=== PATIENT | female | born 1950 | race Caucasian/White ===

== ENCOUNTER 2016-10-24 19:18 | Inpatient (IN) | payer OTHER, MEDICAID ==
[~2016-10-24] VITALS: Ht 160 cm; Wt 89.8 kg
[2016-10-24 19:20] VITALS: BP_SYST 141
[2016-10-24 20:57] LABS: BASOPHILS # (AUTO) 0.2 K/uL (0.0-0.2); BASOPHILS % (AUTO) 1.9 % (0.0-2.0); EOSINOPHILS # (AUTO) 0.1 K/uL (0.0-0.4); EOSINOPHILS % (AUTO) 0.8 % (0.0-4.0); HEMATOCRIT 50.5 % (36-48); HEMOGLOBIN 16.4 g/dL (12.0-16.0); LYMPHOCYTES # (AUTO) 1.3 K/uL (1.0-5.5); LYMPHOCYTES % (AUTO) 10.5 % (20.5-51.5); MEAN CORPUSCULAR HEMOGLOBIN 31 pg (27-31); MEAN CORPUSCULAR HGB CONC 33 % (32-36); MEAN CORPUSCULAR VOLUME 95 fL (79.0-98.0); MONOCYTES # (AUTO) 0.9 K/uL (0.0-1.0); MONOCYTES % (AUTO) 7.3 % (1.7-9.3); NEUTROPHILS # (AUTO) 9.5 K/uL (1.8-7.7); NEUTROPHILS % (AUTO) 79.5 % (40.0-70.0); PLATELET COUNT (AUTO) 257 K/uL (130-430); RED BLOOD CELL COUNT(AUTO) 5.33 MIL/uL (4.2-6.2); RED CELL DISTRIBUTION WIDTH 12.2 % (9.0-15.0)
[2016-10-24 21:00] LABS: ANION GAP 6 (5-15); CALCIUM 11.1 mg/dL (8.4-11.0); CHLORIDE 104 mmol/L (98-107); CREATININE 1.21 mg/dL (0.55-1.30); GLUCOSE 127 mg/dL (70-99); POTASSIUM 3.3 mmol/L (3.5-5.1); SODIUM SERUM 140 mmol/L (136-145); UREA NITROGEN, BLOOD 26 mg/dL (8-21)
[2016-10-24 21:05] LABS: GFR AFRICAN AMERICAN 57 mL/min (>90)
[2016-10-24 21:08] LABS: ALANINE AMINOTRANSFERASE 29 U/L (12-78); ALBUMIN 3.7 g/dL (3.4-4.8); ASPARTATE AMINOTRANSFERASE 19 U/L (10-37); TOTAL BILIRUBIN 0.8 mg/dL (0.0-1.0); TOTAL PROTEIN, SERUM 6.6 g/dL (6.4-8.3)
[2016-10-24] MEDS ORDERED: DIPH-TET-PERTUS Vaccine 0.5 ML VIAL (ADACEL) I.M. ONE (22:15)
[2016-10-24] MEDS ORDERED: NACL 0.9% 1,000 ML IV ONE (22:15)
[2016-10-24] MEDS ORDERED: IPRA4AER INH (22:29)
[2016-10-24] MEDS ORDERED: ESCI20TA PO (22:29)
[2016-10-24] MEDS ORDERED: BUTA1CAP43 PO (22:29)
[2016-10-24] MEDS ORDERED: QUET25TA34 PO (22:29)
[2016-10-24] MEDS ORDERED: HAL5 PO (22:29)
[2016-10-24] MEDS ORDERED: PRO40 PO (22:29)
[2016-10-24] MEDS ORDERED: LORA1TAB PO (22:29)
[2016-10-24] MEDS ORDERED: HYDR-4100 PO (22:29)
[2016-10-24] MEDS ORDERED: QUET50TA22 PO (22:29)
[2016-10-24] MEDS ORDERED: HYDROcodone/ACETAMIN 10-325 MG TAB PO PRN (23:00)
[2016-10-24] MEDS ORDERED: LORazepam 1 MG TABLET PO PRN (23:00)
[2016-10-24] MEDS ORDERED: HALOPERIDOL 5 MG TABLET (HALDOL) PO PRN (23:00)
[2016-10-24] MEDS ORDERED: PANTOPRAZOLE SODIUM 40 MG/VIAL (PROTONIX) ONE (23:17)
[2016-10-24 23:22] VITALS: BP_SYST 119
[2016-10-24] MEDS ORDERED: IPRATROPIUM/ALBUTEROL SULFATE 3 ML AMPUL.NEB INH PRN (23:30)
[2016-10-25] VITALS (7 sets, daily range): BP systolic 119–132
[2016-10-25 03:41] LABS: BILIRUBIN,URINE NEGATIVE (NEGATIVE); BLOOD, URINE NEGATIVE (NEGATIVE); CLARITY/URINE CLOUDY (CLEAR); COLOR,URINE YELLOW (YELLOW); GLUCOSE,URINE NEGATIVE (NEGATIVE); KETONES,URINE TRACE (NEGATIVE); LEUKOCYTE ESTERASE ,URINE 2+ (NEGATIVE); NITRITE, URINE POSITIVE (NEGATIVE); PROTEIN URINE NEGATIVE (NEGATIVE)
[2016-10-25 03:52] LABS: BACTERIA,URINE MANY /HPF (None Seen); RBC,URINE 0-3 /HPF (0-3); WBC,URINE 20-50 /HPF (0-3)
[2016-10-25 07:01] LABS: CALCIUM 10.2 mg/dL (8.4-11.0); CREATININE 0.91 mg/dL (0.55-1.30); POTASSIUM 3.2 mmol/L (3.5-5.1)
[2016-10-25 07:57] LABS: BASOPHILS % (AUTO) 0.4 % (0.0-2.0); EOSINOPHILS # (AUTO) 0.1 K/uL (0.0-0.4); EOSINOPHILS % (AUTO) 1.2 % (0.0-4.0); HEMATOCRIT 46.2 % (36-48); HEMOGLOBIN 15.1 g/dL (12.0-16.0); LYMPHOCYTES # (AUTO) 1.3 K/uL (1.0-5.5); LYMPHOCYTES % (AUTO) 16.9 % (20.5-51.5); MEAN CORPUSCULAR HEMOGLOBIN 31 pg (27-31); MEAN CORPUSCULAR HGB CONC 33 % (32-36); MEAN CORPUSCULAR VOLUME 94 fL (79.0-98.0); MONOCYTES # (AUTO) 0.7 K/uL (0.0-1.0); MONOCYTES % (AUTO) 8.5 % (1.7-9.3); NEUTROPHILS # (AUTO) 5.7 K/uL (1.8-7.7); PLATELET COUNT (AUTO) 222 K/uL (130-430); RED BLOOD CELL COUNT(AUTO) 4.89 MIL/uL (4.2-6.2); RED CELL DISTRIBUTION WIDTH 12.1 % (9.0-15.0); WHITE BLOOD COUNT (AUTO) 7.8 K/uL (4.8-10.8)
[2016-10-25] MEDS: QUEtiapine FUMARATE 25 MG TABLET PO SCH ×2 (08:07→21:00)
[2016-10-25] MEDS ORDERED: MAGNESIUM SULFATE 50 ML IV PRN (08:30)
[2016-10-25] MEDS ORDERED: ACETAMINOPHEN 325 MG TABLET PO PRN (08:30)
[2016-10-25] MEDS ORDERED: POTASSIUM CHLORIDE 10 MEQ TAB.PRT.SR PO PRN (08:30)
[2016-10-25] MEDS ORDERED: DOCUSATE SODIUM 100 MG CAPSULE PO PRN (08:30)
[2016-10-25] MEDS ORDERED: ONDANSETRON HCL 4 MG/2 ML VIAL IVP PRN (08:30)
[2016-10-25] MEDS ORDERED: ZOLPIDEM TARTRATE 5 MG TABLET PO PRN (08:30)
[2016-10-25] MEDS ORDERED: MORPHINE 2 MG/ML INJ. SYRINGE IVP PRN (08:30)
[2016-10-25] MEDS ORDERED: LORazepam 2 MG/ML VIAL IVP PRN (08:30)
[2016-10-25] MEDS ORDERED: ESCITALOPRAM OXALATE 10 MG TABLET PO SCH (09:00)
[2016-10-25] MEDS ORDERED: PANTOPRAZOLE SODIUM 40 MG TAB PO SCH (09:00)
[2016-10-25] MEDS: cefTRIAXone 1 GM in D5W 50 ML IV SCH (10:22)
[2016-10-25] MEDS: CITALOPRAM HYDROBROMIDE 20 MG TABLET PO SCH (10:22)
[2016-10-25] MEDS: HEPARIN SODIUM,PORCINE 5000 UNITS/ML VIAL SUBCUT SCH ×2 (10:25→21:02)
[2016-10-25] MEDS: NACL 0.9% 1,000 ML IV SCH ×2 (13:03→14:35)
[2016-10-26] VITALS: BP_SYST 133
[2016-10-26] MEDS: NACL 0.9% 1,000 ML IV SCH ×2 (04:41→17:39)
[2016-10-26 05:05] VITALS: BP_SYST 126
[2016-10-26 07:42] LABS: BASOPHILS % (AUTO) 0.4 % (0.0-2.0); CREATININE 0.79 mg/dL (0.55-1.30); EOSINOPHILS # (AUTO) 0.1 K/uL (0.0-0.4); EOSINOPHILS % (AUTO) 1.5 % (0.0-4.0); HEMATOCRIT 43.5 % (36-48); HEMOGLOBIN 14.3 g/dL (12.0-16.0); LYMPHOCYTES % (AUTO) 18.4 % (20.5-51.5); MEAN CORPUSCULAR HEMOGLOBIN 31 pg (27-31); MEAN CORPUSCULAR HGB CONC 33 % (32-36); MEAN CORPUSCULAR VOLUME 94 fL (79.0-98.0); MONOCYTES # (AUTO) 0.4 K/uL (0.0-1.0); MONOCYTES % (AUTO) 7.7 % (1.7-9.3); NEUTROPHILS # (AUTO) 3.8 K/uL (1.8-7.7); PLATELET COUNT (AUTO) 171 K/uL (130-430); POTASSIUM 3.8 mmol/L (3.5-5.1); RED BLOOD CELL COUNT(AUTO) 4.62 MIL/uL (4.2-6.2); RED CELL DISTRIBUTION WIDTH 12.4 % (9.0-15.0); WHITE BLOOD COUNT (AUTO) 5.3 K/uL (4.8-10.8)
[2016-10-26] MEDS: QUEtiapine FUMARATE 25 MG TABLET PO SCH ×2 (09:00→21:30)
[2016-10-26] MEDS: CITALOPRAM HYDROBROMIDE 20 MG TABLET PO SCH (09:00)
[2016-10-26] MEDS: cefTRIAXone 1 GM in D5W 50 ML IV SCH (09:05)
[2016-10-26] MEDS: HEPARIN SODIUM,PORCINE 5000 UNITS/ML VIAL SUBCUT SCH ×2 (09:07→21:30)
[2016-10-26 09:18] VITALS: BP_SYST 105
[2016-10-26 12:40] VITALS: BP_SYST 117
[2016-10-26 16:52] VITALS: BP_SYST 122
[2016-10-26 19:48] VITALS: BP_SYST 130
[2016-10-27 00:28] VITALS: BP_SYST 121
[2016-10-27] MEDS: NACL 0.9% 1,000 ML IV SCH (05:11)
[2016-10-27 05:25] VITALS: BP_SYST 136
[2016-10-27 08:08] LABS: BASOPHILS % (AUTO) 0.2 % (0.0-2.0); EOSINOPHILS # (AUTO) 0.2 K/uL (0.0-0.4); EOSINOPHILS % (AUTO) 2.9 % (0.0-4.0); HEMATOCRIT 42.3 % (36-48); HEMOGLOBIN 14.1 g/dL (12.0-16.0); LYMPHOCYTES # (AUTO) 0.9 K/uL (1.0-5.5); LYMPHOCYTES % (AUTO) 16.9 % (20.5-51.5); MEAN CORPUSCULAR HEMOGLOBIN 32 pg (27-31); MEAN CORPUSCULAR HGB CONC 33 % (32-36); MEAN CORPUSCULAR VOLUME 95 fL (79.0-98.0); MONOCYTES # (AUTO) 0.4 K/uL (0.0-1.0); MONOCYTES % (AUTO) 7.1 % (1.7-9.3); NEUTROPHILS % (AUTO) 72.9 % (40.0-70.0); PLATELET COUNT (AUTO) 158 K/uL (130-430); RED BLOOD CELL COUNT(AUTO) 4.47 MIL/uL (4.2-6.2); RED CELL DISTRIBUTION WIDTH 12.6 % (9.0-15.0); WHITE BLOOD COUNT (AUTO) 5.5 K/uL (4.8-10.8)
[2016-10-27 08:15] LABS: CALCIUM 10.1 mg/dL (8.4-11.0); CREATININE 0.77 mg/dL (0.55-1.30); POTASSIUM 3.6 mmol/L (3.5-5.1)
[2016-10-27 08:17] VITALS: BP_SYST 135
[2016-10-27] MEDS: cefTRIAXone 1 GM in D5W 50 ML IV SCH (09:13)
[2016-10-27] MEDS: HEPARIN SODIUM,PORCINE 5000 UNITS/ML VIAL SUBCUT SCH (09:14)
[2016-10-27] MEDS: QUEtiapine FUMARATE 25 MG TABLET PO SCH (09:15)
[2016-10-27] MEDS: CITALOPRAM HYDROBROMIDE 20 MG TABLET PO SCH (09:15)
[2016-10-27] MEDS ORDERED: BISACODYL 10 MG/SUPPOSITORY RC ONE (10:30)
[2016-10-27] MEDS ORDERED: NA PHOS,M-B/NA PHOS,DI-BA 118 ML (FLEET ENEMA) RC ONE (10:30)
[2016-10-27 12:15] VITALS: BP_SYST 134
[2016-10-27 16:00] VITALS: BP_SYST 126
[2016-10-27 17:58] VITALS: BP_SYST 126
== END 2016-10-27 19:15 | DRG 689 ==
LOC: SED 19:18 → INTOOBSV 22:45 → SMU 22:45 → OBSVTOIN 10-25 08:56 → SMU 10-25 16:23
PROVIDERS: ADMIT General Practice; ATTEND General Practice
DX: N39.0 Urinary tract infection, site not specified (principal); G93.41 Metabolic encephalopathy; S01.81XA Laceration without foreign body of other part of head, initial encounter; E87.6 Hypokalemia; F32.9 Major depressive disorder, single episode, unspecified; Z91.81 History of falling; R26.81 Unsteadiness on feet; Z88.2 Allergy status to sulfonamides; F29 Unspecified psychosis not due to a substance or known physiological condition; Z66 Do not resuscitate; X58.XXXA Exposure to other specified factors, initial encounter; Y93.89 Activity, other specified; Y92.89 Other specified places as the place of occurrence of the external cause; Y99.8 Other external cause status
CPT/HCPCS: 36415; 70450-TC; 72125-TC; 74230; 80048; 80053; 81000-TC; 83735-TC; 84484; 85025; 87081; 90715; 92610-GN; 92611-GN; 96360; 97530-GP; 99285; C9113; G0378; J0696; J1644; J2270; J7030; J7060

== ENCOUNTER 2016-12-18 14:51 | Inpatient (IN) | payer OTHER, MEDICAID ==
[~2016-12-18] VITALS: Ht 165.1 cm; Wt 89.8 kg
[2016-12-18 14:51] VITALS: BP_SYST 123
[~2016-12-18 14:51] MED LIST: BUTA1CAP43 PO; ESCI20TA PO; HAL5 PO; HYDR-4100 PO; IPRA4AER INH; LORA1TAB PO; QUET25TA34 PO; QUET50TA22 PO
[2016-12-18 16:26] LABS: BASOPHILS % (AUTO) 0.5 % (0.0-2.0); EOSINOPHILS # (AUTO) 0.1 K/uL (0.0-0.4); EOSINOPHILS % (AUTO) 0.8 % (0.0-4.0); HEMATOCRIT 49.9 % (36-48); HEMOGLOBIN 16.5 g/dL (12.0-16.0); LYMPHOCYTES % (AUTO) 14.8 % (20.5-51.5); MEAN CORPUSCULAR HEMOGLOBIN 31 pg (27-31); MEAN CORPUSCULAR HGB CONC 33 % (32-36); MEAN CORPUSCULAR VOLUME 94 fL (79.0-98.0); MONOCYTES # (AUTO) 0.6 K/uL (0.0-1.0); MONOCYTES % (AUTO) 9.1 % (1.7-9.3); NEUTROPHILS # (AUTO) 5.2 K/uL (1.8-7.7); NEUTROPHILS % (AUTO) 74.8 % (40.0-70.0); PLATELET COUNT (AUTO) 232 K/uL (130-430); RED CELL DISTRIBUTION WIDTH 12.8 % (9.0-15.0); WHITE BLOOD COUNT (AUTO) 6.9 K/uL (4.8-10.8)
[2016-12-18 16:41] LABS: BILIRUBIN,URINE 3+ (NEGATIVE); BLOOD, URINE NEGATIVE (NEGATIVE); CLARITY/URINE CLOUDY (CLEAR); COLOR,URINE YELLOW (YELLOW); GLUCOSE,URINE NEGATIVE (NEGATIVE); KETONES,URINE TRACE (NEGATIVE); LEUKOCYTE ESTERASE ,URINE 3+ (NEGATIVE); NITRITE, URINE POSITIVE (NEGATIVE); PH,URINE 7.5 (5.0-8.0); PROTEIN URINE 1+ (NEGATIVE)
[2016-12-18 16:46] LABS: ANION GAP 11 (5-15); CHLORIDE 104 mmol/L (98-107); CREATININE 0.85 mg/dL (0.55-1.30); GLUCOSE 80 mg/dL (70-99); SODIUM SERUM 141 mmol/L (136-145); UREA NITROGEN, BLOOD 13 mg/dL (8-21)
[2016-12-18 16:49] LABS: INR 1.1 (0.8-1.2); PROTHROMBIN TIME 11.6 SECS (9.5-12.5)
[2016-12-18 16:56] LABS: CALCIUM 14.5 mg/dL (8.4-11.0); GFR AFRICAN AMERICAN 86 mL/min (>90)
[2016-12-18] MEDS ORDERED: CIPROFLOXACIN LACT 400 MG/D5W 200 ML IV ONE (17:00)
[2016-12-18] MEDS ORDERED: NACL 0.9% 1,000 ML IV ONE (17:00)
[2016-12-18] MEDS ORDERED: NACL 0.9% 1,000 ML IV SCH (17:05)
[2016-12-18] MEDS ORDERED: POTASSIUM CHLORIDE 40 MEQ in NS 250 ML IV ONE (17:15)
[2016-12-18 17:19] LABS: BACTERIA,URINE MANY /HPF (None Seen); RBC,URINE 0-3 /HPF (0-3); WBC,URINE 50-80 /HPF (0-3)
[2016-12-18 17:20] LABS: MUCUS,URINE None Seen /LPF (None Seen)
[2016-12-18 17:21] LABS: URINE AMORPHOUS PHOSPHATES 4+ /HPF (None Seen)
[2016-12-18 17:23] LABS: BARBITURATE, URINE NEGATIVE (NEG <=200); METHAMPHETAMINES SCREEN,URINE NEGATIVE (NEG <=500); URINE AMPHETAMINE NEGATIVE (NEG <=500)
[2016-12-18 17:24] LABS: BENZODIAZEPINE, URINE NEGATIVE (NEG <=150); CANNABINOID, URINE NEGATIVE (NEG <=50); COCAINE, URINE NEGATIVE (NEG <=150); OPIATE, URINE NEGATIVE (NEG <=100); PHENCYCLIDINE SCREEN,URINE NEGATIVE (NEG <=25); URINE METHADONE NEGATIVE (NEG <=200); URINE OXYCODONE SCREEN NEGATIVE (NEG <=100); URINE PROPOXYPHENE SCREEN NEGATIVE (NEG <=300)
[2016-12-18 17:25] LABS: UR TRICYCLIC ANTIDEPRESSANTS POSITIVE (NEG <=300)
[2016-12-18] MEDS ORDERED: CEPH-568 PO (17:38)
[2016-12-18] MEDS ORDERED: HYDR-4100 PO (17:38)
[2016-12-18] MEDS ORDERED: PRO40 PO (17:38)
[2016-12-18] MEDS ORDERED: MULT PO (17:38)
[2016-12-18] MEDS ORDERED: nystatin powder TP (17:38)
[2016-12-18 18:03] LABS: ACETAMINOPHEN 2 ug/mL (1-30); ALANINE AMINOTRANSFERASE 34 U/L (12-78); ALBUMIN 3.3 g/dL (3.4-4.8); ASPARTATE AMINOTRANSFERASE 41 U/L (10-37); TOTAL BILIRUBIN 1.4 mg/dL (0.0-1.0)
[2016-12-18 18:04] LABS: ALCOHOL, BLOOD < 3 mg/dL (<10)
[2016-12-18] MEDS ORDERED: 0.45% NACL 1,000 ML IV SCH (18:15)
[2016-12-18] MEDS ORDERED: MAGNESIUM SULFATE 50 ML IV PRN (18:15)
[2016-12-18] MEDS ORDERED: DOCUSATE SODIUM 100 MG CAPSULE PO PRN (18:15)
[2016-12-18] MEDS ORDERED: IPRATROPIUM/ALBUTEROL SULFATE 120 PUFFS/4 GM INH INH PRN (18:15)
[2016-12-18] MEDS ORDERED: POTASSIUM CHLORIDE 10 MEQ TAB.PRT.SR PO PRN (18:15)
[2016-12-18] MEDS ORDERED: HYDROcodone/ACETAMIN 10-325 MG TAB PO PRN (18:15)
[2016-12-18] MEDS ORDERED: HALOPERIDOL 5 MG TABLET (HALDOL) PO PRN (18:15)
[2016-12-18] MEDS ORDERED: MORPHINE 2 MG/ML INJ. SYRINGE IVP PRN ×2 (18:15)
[2016-12-18] MEDS ORDERED: ACETAMINOPHEN 325 MG TABLET PO PRN (18:15)
[2016-12-18] MEDS ORDERED: ZOLPIDEM TARTRATE 5 MG TABLET PO PRN (18:15)
[2016-12-18] MEDS ORDERED: ONDANSETRON HCL 4 MG/2 ML VIAL IVP PRN (18:15)
[2016-12-18 18:48] VITALS: BP_SYST 92
[2016-12-18] MEDS ORDERED: IPRATROPIUM/ALBUTEROL SULFATE 3 ML AMPUL.NEB INH PRN (19:15)
[2016-12-18] MEDS: cefTRIAXone 1 GM IVPB PREMIX 50 ML IV SCH (21:19)
[2016-12-18 21:28] VITALS: BP_SYST 104
[2016-12-18] MEDS: QUEtiapine FUMARATE 25 MG TABLET PO SCH (22:15)
[2016-12-18] MEDS: HEPARIN SODIUM,PORCINE 5000 UNITS/ML VIAL SUBCUT SCH (22:23)
[2016-12-18 23:00] VITALS: BP_SYST 104
[2016-12-19] VITALS (7 sets, daily range): BP systolic 104–141
[2016-12-19] MEDS: LORazepam 2 MG/ML VIAL IVP PRN (06:34)
[2016-12-19 07:05] LABS: BASOPHILS # (AUTO) 0.1 K/uL (0.0-0.2); BASOPHILS % (AUTO) 1.2 % (0.0-2.0); EOSINOPHILS # (AUTO) 0.1 K/uL (0.0-0.4); EOSINOPHILS % (AUTO) 1.1 % (0.0-4.0); HEMATOCRIT 43.1 % (36-48); HEMOGLOBIN 14.4 g/dL (12.0-16.0); LYMPHOCYTES % (AUTO) 15.2 % (20.5-51.5); MEAN CORPUSCULAR HEMOGLOBIN 31 pg (27-31); MEAN CORPUSCULAR HGB CONC 34 % (32-36); MEAN CORPUSCULAR VOLUME 94 fL (79.0-98.0); MONOCYTES # (AUTO) 0.7 K/uL (0.0-1.0); NEUTROPHILS # (AUTO) 4.8 K/uL (1.8-7.7); NEUTROPHILS % (AUTO) 72.5 % (40.0-70.0); PLATELET COUNT (AUTO) 198 K/uL (130-430); RED CELL DISTRIBUTION WIDTH 13.2 % (9.0-15.0); WHITE BLOOD COUNT (AUTO) 6.7 K/uL (4.8-10.8)
[2016-12-19 07:09] LABS: CREATININE 0.83 mg/dL (0.55-1.30); POTASSIUM 3.3 mmol/L (3.5-5.1)
[2016-12-19] MEDS ORDERED: ESCITALOPRAM OXALATE 10 MG TABLET PO SCH (09:00)
[2016-12-19] MEDS: QUEtiapine FUMARATE 25 MG TABLET PO SCH ×2 (09:31→22:35)
[2016-12-19] MEDS: CITALOPRAM HYDROBROMIDE 20 MG TABLET PO SCH (09:32)
[2016-12-19] MEDS: HEPARIN SODIUM,PORCINE 5000 UNITS/ML VIAL SUBCUT SCH ×2 (09:34→22:45)
[2016-12-19] MEDS: D5NS 1,000 ML IV SCH (14:10)
[2016-12-19] MEDS: cefTRIAXone 1 GM IVPB PREMIX 50 ML IV SCH (18:16)
[2016-12-20 03:21] VITALS: BP_SYST 119
[2016-12-20 06:29] LABS: BASOPHILS % (AUTO) 0.1 % (0.0-2.0); EOSINOPHILS # (AUTO) 0.1 K/uL (0.0-0.4); EOSINOPHILS % (AUTO) 2.5 % (0.0-4.0); HEMATOCRIT 41.2 % (36-48); HEMOGLOBIN 13.9 g/dL (12.0-16.0); LYMPHOCYTES % (AUTO) 21.6 % (20.5-51.5); MEAN CORPUSCULAR HEMOGLOBIN 32 pg (27-31); MEAN CORPUSCULAR HGB CONC 34 % (32-36); MEAN CORPUSCULAR VOLUME 94 fL (79.0-98.0); MONOCYTES # (AUTO) 0.5 K/uL (0.0-1.0); MONOCYTES % (AUTO) 9.8 % (1.7-9.3); NEUTROPHILS # (AUTO) 3.1 K/uL (1.8-7.7); PLATELET COUNT (AUTO) 173 K/uL (130-430); RED CELL DISTRIBUTION WIDTH 13.6 % (9.0-15.0); WHITE BLOOD COUNT (AUTO) 4.7 K/uL (4.8-10.8)
[2016-12-20] MEDS: D5NS 1,000 ML IV SCH ×2 (06:31→14:20)
[2016-12-20 06:41] LABS: CHLORIDE 112 mmol/L (98-107); CREATININE 0.79 mg/dL (0.55-1.30); GLUCOSE 113 mg/dL (70-99); POTASSIUM 3.2 mmol/L (3.5-5.1); SODIUM SERUM 143 mmol/L (136-145); UREA NITROGEN, BLOOD 8 mg/dL (8-21)
[2016-12-20 06:49] LABS: ANION GAP < 3 (5-15); GFR AFRICAN AMERICAN 93 mL/min (>90)
[2016-12-20 08:16] VITALS: BP_SYST 126
[2016-12-20] MEDS: QUEtiapine FUMARATE 25 MG TABLET PO SCH ×2 (09:14→22:07)
[2016-12-20] MEDS: CITALOPRAM HYDROBROMIDE 20 MG TABLET PO SCH (09:15)
[2016-12-20] MEDS: HEPARIN SODIUM,PORCINE 5000 UNITS/ML VIAL SUBCUT SCH ×2 (09:18→22:07)
[2016-12-20] MEDS ORDERED: POTASSIUM CHLORIDE 40 MEQ, LIDOCAINE JECT 2% PF 100 MG 50 MG in NS 250 ML IV ONE (11:00)
[2016-12-20 15:23] VITALS: BP_SYST 133
[2016-12-20] MEDS: cefTRIAXone 1 GM IVPB PREMIX 50 ML IV SCH (17:15)
[2016-12-20] MEDS: LORazepam 2 MG/ML VIAL IVP PRN (17:22)
[2016-12-20 19:59] VITALS: BP_SYST 105
[2016-12-20] MEDS: MUPIROCIN 2% TOPICAL OINTMENT 22 GM NS SCH (22:05)
[2016-12-21 00:29] VITALS: BP_SYST 141
[2016-12-21 03:23] VITALS: BP_SYST 139
[2016-12-21] MEDS: D5NS 1,000 ML IV SCH (06:15)
[2016-12-21 06:39] LABS: BASOPHILS % (AUTO) 0.5 % (0.0-2.0); EOSINOPHILS # (AUTO) 0.1 K/uL (0.0-0.4); EOSINOPHILS % (AUTO) 1.2 % (0.0-4.0); HEMATOCRIT 44.8 % (36-48); HEMOGLOBIN 15.2 g/dL (12.0-16.0); LYMPHOCYTES # (AUTO) 0.8 K/uL (1.0-5.5); LYMPHOCYTES % (AUTO) 15.6 % (20.5-51.5); MEAN CORPUSCULAR HEMOGLOBIN 32 pg (27-31); MEAN CORPUSCULAR HGB CONC 34 % (32-36); MEAN CORPUSCULAR VOLUME 93 fL (79.0-98.0); MONOCYTES # (AUTO) 0.4 K/uL (0.0-1.0); MONOCYTES % (AUTO) 8.1 % (1.7-9.3); NEUTROPHILS # (AUTO) 3.6 K/uL (1.8-7.7); NEUTROPHILS % (AUTO) 74.6 % (40.0-70.0); PLATELET COUNT (AUTO) 204 K/uL (130-430); RED BLOOD CELL COUNT(AUTO) 4.81 MIL/uL (4.2-6.2); RED CELL DISTRIBUTION WIDTH 13.8 % (9.0-15.0); WHITE BLOOD COUNT (AUTO) 4.9 K/uL (4.8-10.8)
[2016-12-21 07:10] LABS: CREATININE 0.83 mg/dL (0.55-1.30); POTASSIUM 3.6 mmol/L (3.5-5.1)
[2016-12-21 07:43] LABS: CALCIUM 13.8 mg/dL (8.4-11.0)
[2016-12-21] MEDS: HEPARIN SODIUM,PORCINE 5000 UNITS/ML VIAL SUBCUT SCH (08:26)
[2016-12-21] MEDS: MUPIROCIN 2% TOPICAL OINTMENT 22 GM NS SCH (08:26)
[2016-12-21 08:56] VITALS: BP_SYST 139
[2016-12-21] MEDS: CITALOPRAM HYDROBROMIDE 20 MG TABLET PO SCH (09:00)
[2016-12-21] MEDS: QUEtiapine FUMARATE 25 MG TABLET PO SCH (09:00)
[2016-12-21 12:13] VITALS: BP_SYST 127
[2016-12-21 12:44] VITALS: BP_SYST 130
== END 2016-12-21 15:38 | disposition hospice, inpatient (51) | DRG 689 ==
LOC: SED 14:51 → SMU 17:05
PROVIDERS: ADMIT General Practice; ATTEND General Practice
DX: N39.0 Urinary tract infection, site not specified (principal); G93.41 Metabolic encephalopathy; E44.0 Moderate protein-calorie malnutrition; E83.52 Hypercalcemia; E87.6 Hypokalemia; F32.9 Major depressive disorder, single episode, unspecified; R62.7 Adult failure to thrive; Z66 Do not resuscitate; F29 Unspecified psychosis not due to a substance or known physiological condition; R26.81 Unsteadiness on feet; Z88.2 Allergy status to sulfonamides; Z68.32 Body mass index [BMI] 32.0-32.9, adult
CPT/HCPCS: 36415; 70450-TC; 71010; 80048; 80053; 80307; 81000-TC; 83605; 83735-TC; 83970; 84484; 85025; 85610-TC; 85730-TC; 87040-TC; 87081; 87086; 87186-TC; 93005; 94760; 96365; 96368; 99285; G0480; G0481; G0482; J0696; J0744; J1644; J2060; J3475; J3480; J7030; J7042; J7050